=== PATIENT | male | born 1975 | race Caucasian/White ===

== ENCOUNTER → 2016-11-27 | Outpatient (CLI) | payer OTHER ==
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
== END | disposition home or self-care (01) ==
LOC: RADXRMAIN 17:31
PROVIDERS: ATTEND Family Medicine
DX: M19.072 Primary osteoarthritis, left ankle and foot (principal)

== ENCOUNTER → 2016-11-28 | Outpatient (CLI) | payer OTHER ==
[2016-11-28 10:25] LABS: CH 30.8; CHCM 33.4; HCT 48.5 % (39.0-53.0); HDW 2.67; HGB 16.1 gm/dL (13.0-17.5); MCH 30.8 pg (25.0-35.0); MCHC 33.2 g/dL (31.0-37.0); MCV 92.6 fL (80.0-100.0); RBC 5.24 m/uL (4.30-5.90); RDW 13.2 % (11.5-15.5); WBC 9.6 k/uL (3.8-10.6)
[2016-11-28 11:28] LABS: ALT 47 U/L (21-72); AST 28 U/L (17-59); Alkaline Phosphatase 73 U/L (38-126); Anion Gap 11 mmol/L; Bilirubin, Delta 0.3 mg/dL (0.0-0.2); Blood Urea Nitrogen 17 mg/dL (9-20); Calcium 9.5 mg/dL (8.4-10.2); Carbon Dioxide 27 mmol/L (22-30); Chloride 105 mmol/L (98-107); Cholesterol 239 mg/dL (<200); Glucose 104 mg/dL (74-99); HDL Cholesterol 41 mg/dL (40-60); Non-African American GFR(MDRD) >60 (>60 ml/min/1.73 sqM); Potassium 4.5 mmol/L (3.5-5.1); Sodium 143 mmol/L (137-145); Triglycerides 166 mg/dL (<150)
== END | disposition home or self-care (01) ==
LOC: LABWHC1 09:51
PROVIDERS: ATTEND Family Medicine
DX: S90.32XA Contusion of left foot, initial encounter (principal); R42 Dizziness and giddiness; H61.23 Impacted cerumen, bilateral; G89.29 Other chronic pain
CPT/HCPCS: 36415; 80053; 80061; 82248; 84439; 84443; 85027

== ENCOUNTER 2017-10-07 11:57 | Emergency (ER) | payer BC, OTHER ==
[2017-10-07] MEDS ORDERED: LISINOPRIL 2.5 MG TAB PO STA (12:31)
[2017-10-07] MEDS ORDERED: SODIUM CHLORIDE 0.9% 1,000 ML IV ONE (12:31)
[2017-10-07 12:53] LABS: Appearance,Urine Clear (Clear); Bilirubin,Urine Negative (Negative); Blood,Urine Negative (Negative); Color,Urine Light Yellow; Glucose,Urine (UA) Negative (Negative); Ketones,Urine Negative (Negative); Leukocyte Esterase,Urine Negative (Negative); Nitrite,Urine Negative (Negative); Protein,Urine Negative (Negative); Specific Gravity,Urine 1.001 (1.001-1.035); Urobilinogen,Urine <2.0 mg/dL (<2.0)
[2017-10-07 12:55] LABS: Basophils % (A) 0 %; Eosinophils % (A) 0 %; HCT 46.5 % (39.0-53.0); HGB 15.2 gm/dL (13.0-17.5); Lymphocytes # (A) 1.2 k/uL (1.0-4.8); Lymphocytes % (A) 17 %; MCH 29.9 pg (25.0-35.0); MCHC 32.8 g/dL (31.0-37.0); MCV 91.3 fL (80.0-100.0); Mean Platelet Volume 6.2; Monocytes # (A) 0.3 k/uL (0-1.0); Monocytes % (A) 4 %; Neutrophils # (A) 5.5 k/uL (1.3-7.7); Neutrophils % (A) 77 %; Platelet Count 341 k/uL (150-450); RBC 5.09 m/uL (4.30-5.90); RDW 12.2 % (11.5-15.5); WBC 7.1 k/uL (3.8-10.6)
[2017-10-07 13:06] LABS: ALT 33 U/L (21-72); AST 24 U/L (17-59); Alkaline Phosphatase 99 U/L (38-126); Anion Gap 14 mmol/L; Blood Urea Nitrogen 13 mg/dL (9-20); Calcium 10.2 mg/dL (8.4-10.2); Carbon Dioxide 29 mmol/L (22-30); Chloride 101 mmol/L (98-107); Glucose 112 mg/dL (74-99); Potassium 4.2 mmol/L (3.5-5.1); Sodium 144 mmol/L (137-145); Total Protein 8.7 g/dL (6.3-8.2)
--- NOTE | 2017-10-07 13:06 | ED ---
General Adult HPI - General Chief complaint: Weakness Stated complaint: EKG Changes Time Seen by Provider: 10/07/17 12:06 Source: patient Mode of arrival: ambulatory Limitations: no limitations - History of Present Illness Initial comments: This is a 42-year-old male with a history of hypertension who presents emergency department for an episode of lightheadedness, flushing, and diaphoresis this morning. He went to a clinic that did an EKG that was suspected to be abnormal in the was sent to the emergency department. The patient states that this episode happened this morning while he was standing. There is no position change. He states it lasted approximately an hour and he had symptoms that had resolved by the time he got to the clinic. EKG there was concerning because of some possible ST elevation in V2 and V3 and thus the patient was directed to the emergency department. Patient states that he has not had any chest pain today at all. No shortness of breath. He states he just felt lightheaded and got flushed at the time. He has complete resolution of his symptoms currently. Follows with Dr. Cope for his primary doctor. - Related Data Home Medications Medication Instructions Recorded Confirmed Lisinopril [Zestril] 2.5 mg PO DAILY 10/07/17 10/07/17 Allergies Allergy/AdvReac Type Severity Reaction Status Date / Time No Known Allergies Allergy Unverified 10/07/17 12:10 Review of Systems ROS Statement: Those systems with pertinent positive or pertinent negative responses have been documented in the HPI. ROS Other: All systems not noted in ROS Statement are negative. Past Medical History Past Medical History: Hypertension History of Any Multi-Drug Resistant Organisms: None Reported Past Surgical History: Appendectomy Past Psychological History: No Psychological Hx Reported Smoking Status: Never smoker Past Alcohol Use History: None Reported Past Drug Use History: None Reported General Exam - General Exam Comments Initial Comments: Constitutional: Awake alert Appears comfortable Head: Normocephalic atraumatic Eyes: no conjunctival injection No scleral icterus EOMI Neck: No JVD Supple Heart: Regular rate rhythm normal S1-S2 no murmurs Lungs: Clear to auscultation bilaterally No wheezing No rales Abdomen: Soft nondistended nontender Extremities: Non edematous DP pulses intact Radial pulses intact Neuro: A&Ox3 No focal neurologic deficits Psych: Appropriate mood and affect Limitations: no limitations Course Vital Signs 0210/07/17 10/07/17 12:09 12:39 14:08 Temperature 98.9 F Pulse Rate 69 74 86 Respiratory 16 18 14 Rate Blood Pressure 176/100 130/73 111/47 O2 Sat by Pulse 99 96 95 Oximetry EKG Findings - EKG Comments: EKG Findings:: EKG showing normal sinus rhythm with a rate of 64. There is no abnormal ST segment changes or T-wave inversion. QTC is 389. Other intervals normal. No ectopy. Medical Decision Making - Medical Decision Making Is a 42-year-old male who presents emergency department for an episode of lightheadedness that it completely resolved by the time he went and saw physician. EXT went to work for 4 hours before he sought any medical attention. EKG at the clinic was concerning for ST segment changes so they sent him to the emergency department. EKG read on here was completely normal. Patient had blood work drawn that was unremarkable. Troponin negative. The patient was ambulatory up and down the hallway without any symptoms. He has had had any symptoms since this morning. At this time I feel the patient is okay to go home. He can follow-up with Dr. Ivey as an outpatient. Told him that if he had recurrent symptoms he needed to return emergency department promptly for reevaluation. All questions were answered. - Lab Data Result diagrams: 10/07/17 12:35 10/07/17 12:35 Lab Results 10/07/17 10/07/17 10/07/17 Range/Units 12:35 12:35 12:35 WBC 7.1 (3.8-10.6) k/uL RBC 5.09 (4.30-5.90) m/uL Hgb 15.2 (13.0-17.5) gm/dL Hct 46.5 (39.0-53.0) % MCV 91.3 (80.0-100.0) fL MCH 29.9 (25.0-35.0) pg MCHC 32.8 (31.0-37.0) g/dL RDW 12.2 (11.5-15.5) % Plt Count 341 (150-450) k/uL Neutrophils % 77 % Lymphocytes % 17 % Monocytes % 4 % Eosinophils % 0 % Basophils % 0 % Neutrophils # 5.5 (1.3-7.7) k/uL Lymphocytes # 1.2 (1.0-4.8) k/uL Monocytes # 0.3 (0-1.0) k/uL Eosinophils # 0.0 (0-0.7) k/uL Basophils # 0.0 (0-0.2) k/uL PT (9.0-12.0) sec INR (<1.2) APTT (22.0-30.0) sec Sodium 144 (137-145) mmol/L Potassium 4.2 (3.5-5.1) mmol/L Chloride 101 (98-107) mmol/L Carbon Dioxide 29 (22-30) mmol/L Anion Gap 14 mmol/L BUN 13 (9-20) mg/dL Creatinine 0.80 (0.66-1.25) mg/dL Est GFR (MDRD) Af Amer >60 (>60 ml/min/1.73 sqM) Est GFR (MDRD) Non-Af >60 (>60 ml/min/1.73 sqM) Glucose 112 H (74-99) mg/dL Calcium 10.2 (8.4-10.2) mg/dL Total Bilirubin 1.0 (0.2-1.3) mg/dL AST 24 (17-59) U/L ALT 33 (21-72) U/L Alkaline Phosphatase 99 (38-126) U/L CK-MB (CK-2) 0.7 (0.0-2.4) ng/mL Troponin I <0.012 (0.000-0.034) ng/mL Total Protein 8.7 H (6.3-8.2) g/dL Albumin 5.0 (3.5-5.0) g/dL Urine Color Urine Appearance (Clear) Urine pH (5.0-8.0) Ur Specific [place] (1.001-1.035) Urine Protein (Negative) Urine Glucose (UA) (Negative) Urine Ketones (Negative) Urine Blood (Negative) Urine Nitrite (Negative) Urine Bilirubin (Negative) Urine Urobilinogen (<2.0) mg/dL Ur Leukocyte Esterase (Negative) 10/07/17 10/07/17 Range/Units 12:35 12:35 WBC (3.8-10.6) k/uL RBC (4.30-5.90) m/uL Hgb (13.0-17.5) gm/dL Hct (39.0-53.0) % MCV (80.0-100.0) fL MCH (25.0-35.0) pg MCHC (31.0-37.0) g/dL RDW (11.5-15.5) % Plt Count (150-450) k/uL Neutrophils % % Lymphocytes % % Monocytes % % Eosinophils % % Basophils % % Neutrophils # (1.3-7.7) k/uL Lymphocytes # (1.0-4.8) k/uL Monocytes # (0-1.0) k/uL Eosinophils # (0-0.7) k/uL Basophils # (0-0.2) k/uL PT 10.0 (9.0-12.0) sec INR 1.0 (<1.2) APTT 24.2 (22.0-30.0) sec Sodium (137-145) mmol/L Potassium (3.5-5.1) mmol/L Chloride (98-107) mmol/L Carbon Dioxide (22-30) mmol/L Anion Gap mmol/L BUN (9-20) mg/dL Creatinine (0.66-1.25) mg/dL Est GFR (MDRD) Af Amer (>60 ml/min/1.73 sqM) Est GFR (MDRD) Non-Af (>60 ml/min/1.73 sqM) Glucose (74-99) mg/dL Calcium (8.4-10.2) mg/dL Total Bilirubin (0.2-1.3) mg/dL AST (17-59) U/L ALT (21-72) U/L Alkaline Phosphatase (38-126) U/L CK-MB (CK-2) (0.0-2.4) ng/mL Troponin I (0.000-0.034) ng/mL Total Protein (6.3-8.2) g/dL Albumin (3.5-5.0) g/dL Urine Color Light Yellow Urine Appearance Clear (Clear) Urine pH 7.0 (5.0-8.0) Ur Specific [place] 1.001 (1.001-1.035) Urine Protein Negative (Negative) Urine Glucose (UA) Negative (Negative) Urine Ketones Negative (Negative) Urine Blood Negative (Negative) Urine Nitrite Negative (Negative) Urine Bilirubin Negative (Negative) Urine Urobilinogen <2.0 (<2.0) mg/dL Ur Leukocyte Esterase Negative (Negative) Disposition Clinical Impression: Lightheadedness Disposition: HOME SELF-CARE Condition: Stable Instructions: Lightheadedness (ED) Additional Instructions: Call Dr. Ivey to set up a stress test and possible echocardiogram. Return if you have recurring symptoms or chest pain, shortness of breath, or pass out. Referrals: Angelo Cope Jr, [Primary Care Provider] - 1-2 days
[2017-10-07 13:12] LABS: Partial Thromboplastin Time 24.2 sec (22.0-30.0)
[2017-10-07 13:34] LABS: Creatine Kinase MB 0.7 ng/mL (0.0-2.4); Troponin I <0.012 ng/mL (0.000-0.034)
[2017-10-07 14:45] VITALS: BP 111/52; PULSE 78; RESP 16; TEMP 97.8
== END 2017-10-07 14:44 | disposition home or self-care (01) ==
LOC: EC 11:57
DX: R42 Dizziness and giddiness (principal); I10 Essential (primary) hypertension; Z79.899 Other long term (current) drug therapy; R61 Generalized hyperhidrosis
CPT/HCPCS: 36415; 80053; 81003; 82553; 84484; 85025; 85610; 85730; 93005; 96360; 99285

== ENCOUNTER → 2017-10-25 | Outpatient (CLI) | payer BC ==
--- NOTE | 2017-10-25 17:47 | ECHOF ---
Referral Reason:I10 hypertension, R42 Dizziness MEASUREMENTS -------- HEIGHT: 162.6 cm WEIGHT: 124.7 kg BP: RVIDd: 3.0 cm (< 3.3) IVSd: 1.1 cm (0.6 - 1.1) LVIDd: 4.3 cm (3.9 - 5.3) LVPWd: 1.4 cm (0.6 - 1.1) IVSs: 1.2 cm LVIDs: 4.0 cm LVPWs: 1.1 cm LA Diam: 3.7 cm (2.7 - 3.8) LAESV Index (A-L): 34.41 ml/m Ao Diam: 3.6 cm (2.0 - 3.7) AV Cusp: 2.5 cm (1.5 - 2.6) LA Diam: 4.3 cm (2.7 - 3.8) MV EXCURSION: 19.783 mm (> 18.000) MV EF SLOPE: 127 mm/s (70 - 150) EPSS: 0.2 cm MV E Dennis: 0.48 m/s MV DecT: 198 ms MV A Dennis: 0.55 m/s MV E/A Ratio: 0.87 RAP: 5.00 mmHg RVSP: 17.49 mmHg FINDINGS -------- Sinus rhythm. This was a technically good study. The left ventricular size is normal. There is borderline concentric left ventricular hypertrophy. Overall left ventricular systolic function is normal with, an EF between 55 - 60 %. The right ventricle is normal in size. Normal LA size by volume 22+/-6 ml/m2. The right atrial size is normal. The aortic valve is trileaflet, and appears structurally normal. No aortic stenosis or regurgitation. The mitral valve is normal. Mild mitral regurgitation is present. Mild tricuspid regurgitation present. There is no evidence of pulmonary hypertension. The right v entricular systolic pressure, as measured by Doppler, is 17.49mmHg. There is no pulmonic regurgitation present. The aortic root size is normal. There is no pericardial effusion. CONCLUSIONS -------- 1. Sinus rhythm. 2. The left ventricular size is normal. 3. There is borderline concentric left ventricular hypertrophy. 4. Overall left ventricular systolic function is normal with, an EF between 55 - 60 %. 5. Normal LA size by volume 22+/-6 ml/m2. 6. The aortic valve is trileaflet, and appears structurally normal. No aortic stenosis or regurgitati on. 7. Mild mitral regurgitation is present. 8. Mild tricuspid regurgitation present. 9. There is no evidence of pulmonary hypertension. 10. There is no pulmonic regurgitation present. 11. The aortic root size is normal. 12. There is no pericardial effusion. [employer]: Korina Carter RDCS
--- NOTE | 2017-10-25 18:32 | P.STRESS ---
- Stress Test Note Stress Test Results/Findings: Exam Performed: stress test Exam Date: 10/25/17 Reason for Exam: Chest pain, physical Height: 5 ft 5 in Weight: 122.47 kg Protocol: Scottie Stage: 3 Duration of Exercise: 10:00 Resting Heart Rate: 79 Resting Blood Pressure: 119/98 Maximum Achieved Heart Rate: 167 Maximum Achieved Blood Pressure: 182/90 85% PMHR: 150 100% PMHR: 176 METS: 11.7 Technologist Comment: Stress Test Results/Findings: This 42-year-old gentleman is being evaluated for chest pains. Patient has history of hypertension. Baseline EKG showed sinus rhythm with normal [place] interval and QRS duration. Blood pressure at rest is 119/98 with pulse rate of 79. Patient walked on the Scottie protocol for 10 minutes achieving a maximum rate of 167 with a blood pressure of 182/90. EKGs taken during and after the exercise did not reveal any changes to suggest ischemia. Final impression #1. Negative stress test #2. Good excise capacity #3. Patient did not express any chest pain. #4. No arrhythmias are detected.
--- NOTE | 2017-10-29 11:23 | EST ---
- Stress Test Note Stress Test Results/Findings: Exam Performed: stress test Exam Date: 10/25/17 Reason for Exam: Chest pain, physical Height: 5 ft 5 in Weight: 122.47 kg Protocol: Scottie Stage: 3 Duration of Exercise: 10:00 Resting Heart Rate: 79 Resting Blood Pressure: 119/98 Maximum Achieved Heart Rate: 167 Maximum Achieved Blood Pressure: 182/90 85% PMHR: 150 100% PMHR: 176 METS: 11.7 Technologist Comment: Stress Test Results/Findings: This 42-year-old gentleman is being evaluated for chest pains. Patient has history of hypertension. Baseline EKG showed sinus rhythm with normal [place] interval and QRS duration. Blood pressure at rest is 119/98 with pulse rate of 79. Patient walked on the Scottie protocol for 10 minutes achieving a maximum rate of 167 with a blood pressure of 182/90. EKGs taken during and after the exercise did not reveal any changes to suggest ischemia. Final impression #1. Negative stress test #2. Good excise capacity #3. Patient did not express any chest pain. #4. No arrhythmias are detected. MTDD
== END | disposition home or self-care (01) ==
LOC: RADNMMAIN 10:12
PROVIDERS: ATTEND Family Medicine
DX: I08.1 Rheumatic disorders of both mitral and tricuspid valves (principal); I10 Essential (primary) hypertension
CPT/HCPCS: 93017; 93306

== ENCOUNTER → 2020-04-22 | Outpatient (CLI) | payer BC ==
--- NOTE | 2020-04-22 12:36 | XR ---
EXAMINATION TYPE: XR chest 2V DATE OF EXAM: 04/22/2020 COMPARISON: None HISTORY: 44-year-old male chronic chest pain, R05, R07.89 TECHNIQUE: Frontal and lateral views FINDINGS: Heart normal size. Aorta and pulmonary vasculature within normal limits. Mild interstitial prominence . Some mild strandy basilar atelectasis. No consolidation or pleural effusion. IMPRESSION: Mild interstitial prominence may be chronic. Correlate for possible bronchitis or asthma. Otherwise, no acute process seen.
== END | disposition home or self-care (01) ==
LOC: RADXRMAIN 10:03
PROVIDERS: ATTEND Nurse Practitioner Women's Health
DX: R91.8 Other nonspecific abnormal finding of lung field (principal); R07.89 Other chest pain; R05 Cough
CPT/HCPCS: 71046

== ENCOUNTER 2020-06-17 12:13 | Day surgery (SDC) | payer BC ==
[2020-06-16 10:35] VITALS: BMI 38.7
[~2020-06-17 12:13] MED LIST: Pre Op ABX Message 1 EACH MISC MISCELLANE ONE
[2020-06-17 12:40] VITALS: TEMP 97
[2020-06-17] MEDS ORDERED: LACTATED RINGERS 1,000 ML IV ONE (12:49)
[2020-06-17] MEDS ORDERED: LIDOCAINE 1% (10MG/ML) FOR IV START INTRADERMA ONE (12:50)
[2020-06-17] MEDS ORDERED: SODIUM BICARB 8.4% 10 ML VIAL (1 MEQ/ML) ONE (14:08)
[2020-06-17 15:42] VITALS: BP 116/72; PULSE 65; RESP 17
--- NOTE | 2020-06-28 14:34 | P.OP ---
Date of Procedure: 06/17/20 Preoperative Diagnosis: Right middle finger mass Postoperative Diagnosis: Right middle finger mass (ganglion cyst) Procedure(s) Performed: Excision of right middle finger mass/ganglion cyst Anesthesia: local Surgeon: Rafael Gutiérrez Estimated Blood Loss (ml): 2 Pathology: other (cyst) Condition: stable Disposition: same day Indications for Procedure: The patient is 44-year-old male who presented to the office with a right middle finger mass. Top differential diagnoses included ganglion/mucous cyst versus inclusion cyst. Treatment options were presented, along with associated surgical risks and benefits, including the potential for cyst recurrence and extensor lag. The patient expressed understanding, willingness to accept these risks and elected operative treatment. In preop, additional questions were addressed and the patient wished to proceed with surgery. Consent forms were signed. The operative site was confirmed and marked in preop. Description of Procedure: After informed consent was obtained, lidocaine with epinephrine was injected around the planned incision/surgical site in preop, using aseptic technique. The patient was brought to the OR and positioned supine with the operative limb on a hand table. The right upper extremity was then prepped and draped in standard, sterile fashion. A time-out was performed, confirming patient identifiers, the operative side, the site and the procedure to be performed: all team members expressed agreement. A tourniquet was not initially utilized. Loupe magnification was utilized throughout the case for optimum visualization. An S-shaped incision was marked over the mass at the dorsal aspect of the DIP joint. The skin was sharply incised and clear, mucinous fluid was immediately encountered, consistent with a ganglion cyst. Full-thickness skin flaps were elevated. There was some breakthrough bleeding, despite the use of preoperative local anesthetic with epinephrine; a strip of the Esmarch was cut and clamped at the base of the finger as a digital tourniquet. The partially-decompressed cyst was visualized and its borders were defined: It extended proximally along the dorsum of the middle phalanx and distally to the ulnar aspect of the distal phalanx base. The cyst was carefully dissected free from the surrounding subcutaneous tissues. It was traced distally to its attachment at the ulnar edge of the eponychium, near the germinal matrix. Once circumferentially dissected free, the cyst capsule was sharply excised, taking care to avoid injury to the nailbed. The cyst was sent for pathologic analysis. There were no large osteophytes ulnarly, but a small spur was identified on the radial corner of the DIP joint, at the base of the distal phalanx. A limited arthrotomy was performed and the small exostosis was resected with a rongeur. The wound was visually and palpably explored: No residual cystic tissue or soft tissue masses were appreciated. The wound was copiously irrigated with normal saline. The digital tourniquet was released after 17 minutes: good hemostasis was obtained with manual pressure. The incision was closed with interrupted 5-0 nylon sutures. A soft, sterile dressing was applied. All sponge, needle and instrument counts were correct at the end of the case. The patient tolerated the procedure well and was taken to recovery in stable condition.
== END 2020-06-17 16:16 | disposition home or self-care (01) ==
LOC: OR 12:13
PROVIDERS: ATTEND Orthopaedic Surgery
DX: M67.441 Ganglion, right hand (principal); I10 Essential (primary) hypertension; Z98.890 Other specified postprocedural states; Z83.3 Family history of diabetes mellitus; Z82.49 Family history of ischemic heart disease and other diseases of the circulatory system; Z83.2 Family history of diseases of the blood and blood-forming organs and certain disorders involving the immune mechanism
CPT/HCPCS: 88304

== ENCOUNTER 2021-08-20 05:56 | Emergency (ER) | payer BC ==
[2021-08-20 06:14] VITALS: BP 139/78; PULSE 94; RESP 20; TEMP 97.9
[2021-08-20] MEDS ORDERED: LIDOCAINE 1% INJ 10MG/ML (20 ML MDV) SQ ONE (06:26)
--- NOTE | 2021-08-20 07:13 | ED ---
Skin/Abscess/FB HPI - General Chief complaint: Skin/Abscess/Foreign Body Stated complaint: Abcess on back Time Seen by Provider: 08/20/21 06:26 Source: patient, RN notes reviewed Mode of arrival: ambulatory - History of Present Illness Initial comments: Patient is a 45-year-old male that presents to the emergency department complaining of a large abscess to his upper left back. Patient notes he did have a follow-up with his teacher instrumental but had to miss it due to Covid. Patient notes that he's been keeping it clean and dressing at home. He notes that it started becoming more painful over the last couple days and started oozing on its own this morning. Patient decided come to the emergency room to get evaluated and taken care of. Patient denied any other issues or complaints. He was otherwise well-appearing. He denied any chest pain shortness of breath headache nausea vomiting diarrhea constipation fever fatigue chills. - Related Data Home Medications Medication Instructions Recorded Confirmed lisinopriL [Zestril] 2.5 mg PO DAILY 10/07/17 06/17/20 Glucosam/Mario Alberto-Msm1/C/Qasim/Bosw 1 each PO DAILY 06/16/20 06/16/20 [Glucosamine-Chondroitin Tablet] Ibuprofen [Advil] 400 mg PO DIRECTED PRN 06/16/20 06/16/20 Multivit-Min/Folic/Vit K/Lycop 1 each PO DAILY 06/16/20 06/16/20 [Men's Multivitamin Tablet] Previous Rx's Medication Instructions Recorded Doxycycline Monohydrate [Monodox] 100 mg PO Q12HR #20 cap 08/20/21 Allergies Allergy/AdvReac Type Severity Reaction Status Date / Time No Known Allergies Allergy Verified 08/20/21 06:09 Review of Systems ROS Statement: Those systems with pertinent positive or pertinent negative responses have been documented in the HPI. ROS Other: All systems not noted in ROS Statement are negative. Past Medical History Past Medical History: Hypertension Additional Past Medical History / Comment(s): mass right middle finger History of Any Multi-Drug Resistant Organisms: None Reported Past Surgical History: Appendectomy Past Anesthesia/Blood Transfusion Reactions: Motion Sickness, Postoperative Nausea & Vomiting (PONV) Additional Past Anesthesia/Blood Transfusion Reaction / Comment(s): states vomited after dilaudid given fast. states severe motion sickness Past Psychological History: No Psychological Hx Reported Smoking Status: Never smoker Past Alcohol Use History: Rare Past Drug Use History: None Reported - Past Family History Mother Family Medical History: No Reported History General Exam General appearance: alert, in no apparent distress, obese Head exam: Present: atraumatic, normocephalic, normal inspection Eye exam: Present: normal appearance, PERRL, EOMI. Absent: scleral icterus, conjunctival injection, periorbital swelling ENT exam: Present: normal exam, mucous membranes moist Neck exam: Present: normal inspection Respiratory exam: Present: normal lung sounds bilaterally. Absent: respiratory distress, wheezes, rales, rhonchi, stridor Cardiovascular Exam: Present: regular rate, normal rhythm, normal heart sounds. Absent: systolic murmur, diastolic murmur, rubs, gallop, clicks Extremities exam: Present: normal inspection, full ROM, normal capillary refill. Absent: tenderness, pedal edema, joint swelling, calf tenderness Neurological exam: Present: alert, oriented X3 Psychiatric exam: Present: normal affect, normal mood Skin exam: Present: warm, dry, intact, normal color. Absent: rash Expanded Type of lesion: Present: abscess (Large 10 cm x 8 cm abscess to upper left back erythematous, tender.) Course Vital Signs 08/20/21 06:09 Temperature 97.9 F Pulse Rate 94 Respiratory 20 Rate Blood Pressure 139/78 O2 Sat by Pulse 96 Oximetry Procedures - Incision & Drainage Consent Obtained: verbal consent Site: back (Upper left) Size (cm): 10 Anesthetic Used: lidocaine 1% Amount (mLs): 12 I&D Cleaning Method: Betadine Sterile Field Used?: Yes Scalpel Used: #11 Needle Aspiration Performed?: No Irrigation Performed?: Yes I&D Drainage Obtained: Pus, Blood Packing: Iodoform Culture Obtained?: Yes Patient Tolerated Procedure: well, no complications Medical Decision Making - Medical Decision Making 45-year-old male with a large abscess to upper left back. Lidocaine and aerobic wound culture ordered. Patient tolerated incision and drainage well. Wound was cleaned prior to lidocaine and then again prior to incision. Hemostats were used to explore abscess to break up loculations. Iodoform packing placed. Antibiotics sent to pharmacy. Patient informed to follow up with primary care and/or dermatology in the next several days. Case discussed with Dr. Hurst. Disposition Clinical Impression: Abscess Disposition: HOME SELF-CARE Condition: Stable Instructions (If sedation given, give patient instructions): Abscess (ED), Moderate Sedation in Children (ED) Additional Instructions: Please return to the Emergency Department if symptoms worsen or any other concerns. Follow-up with primary care in 1-2 days. Follow-up with teacher instrumental as possible. Keep area clean and dry. Keep packing in for the next 2-3 days. Take antibiotics as prescribed until complete. Anabiotic sent to [facility] pharmacy. Is patient prescribed a controlled substance at d/c from ED?: No Referrals: Angelo Cope Jr, [Primary Care Provider] - 1-2 days Time of Disposition: 07:12
== END 2021-08-20 07:22 | disposition home or self-care (01) ==
LOC: EC 05:56
DX: L02.212 Cutaneous abscess of back [any part, except buttock and flank] (principal); I10 Essential (primary) hypertension; Z79.1 Long term (current) use of non-steroidal anti-inflammatories (NSAID); Z79.899 Other long term (current) drug therapy
CPT/HCPCS: 87070; 87205; 10060; 99283; J2001

== ENCOUNTER 2024-03-12 08:32 | Day surgery (SDC) | payer BC ==
[2024-03-12] MEDS: IV FLUID CONTINUATION 1,000 ML IV ONE (08:55)
[2024-03-12 09:05] VITALS: TEMP 96.7
[2024-03-12] MEDS: LACTATED RINGERS 1,000 ML IV SCH (09:18)
[2024-03-12] MEDS ORDERED: PROPOFOL 10 MG/ML 20 ML VIAL IV ONE (09:33)
[2024-03-12] MEDS ORDERED: LIDOCAINE 1% INJ 10MG/ML (20 ML MDV) ONE (09:33)
--- NOTE | 2024-03-12 09:39 | P.GSHP ---
History of Present Illness H&P Date: 03/12/24 Chief Complaint: Screening colonoscopy This is a 48-year-old male presents today for screening colonoscopy. Patient denies any significant GI complaints. Past Medical History Past Medical History: Hypertension Additional Past Medical History / Comment(s): no longer take lisinopril for htn since diet changes History of Any Multi-Drug Resistant Organisms: None Reported Past Surgical History: Appendectomy Additional Past Surgical History / Comment(s): Rt. middle finger mass, cyst removed from back Past Anesthesia/Blood Transfusion Reactions: Motion Sickness, Postoperative Nausea & Vomiting (PONV) Additional Past Anesthesia/Blood Transfusion Reaction / Comment(s): states vomited after dilaudid given fast. states severe motion sickness Smoking Status: Never smoker - Past Family History Mother Family Medical History: No Reported History Medications and Allergies Home Medications Medication Instructions Recorded Confirmed Type Glucosam/Mario Alberto-Msm1/C/Qasim/Bosw 1 each PO DAILY 06/16/20 03/12/24 History [Glucosamine-Chondroitin Tablet] Ibuprofen [Advil] 400 mg PO DIRECTED PRN 06/16/20 03/12/24 History Multivit-Min/Folic/Vit K/Lycop 1 each PO DAILY 06/16/20 03/12/24 History [Men's Multivitamin Tablet] Allergies Allergy/AdvReac Type Severity Reaction Status Date / Time No Known Allergies Allergy Verified 03/12/24 09:18 Surgical - Exam Vital Signs Temp Pulse Resp BP Pulse Ox 96.7 F L 67 18 126/74 95 03/12/24 08:56 03/12/24 08:56 03/12/24 08:56 03/12/24 08:56 03/12/24 08:56 - General well developed, well nourished, no distress - Eyes PERRL - ENT normal pinna - Neck no masses - Respiratory normal expansion - Cardiovascular Rhythm: regular - Abdomen Abdomen: soft, non tender Assessment and Plan Assessment: Will perform screening colonoscopy
--- NOTE | 2024-03-12 09:49 | P.OP ---
Date of Procedure: 03/12/24 Preoperative Diagnosis: Screening colonoscopy Postoperative Diagnosis: Normal colon Procedure(s) Performed: Colonoscopy Anesthesia: MAC Surgeon: Loco Mendoza Pathology: none sent Condition: stable Disposition: PACU Description of Procedure: PROCEDURE: The patient was placed on the endoscopy table in the lateral position. Digital rectal examination was performed which revealed no abnormalities. The prostate was symmetrical without nodules. Flexible colonoscope was then placed in the patient's anus and passed throughout the entire colon. The ileocecal valve was visualized. The cecum, ascending, transverse, descending and sigmoid colon were normal. The rectum was normal as well. There were no masses, polyps or diverticula noted in the entire colon. SUMMARY OF FINDINGS: Normal colonoscopy.
[2024-03-12 10:13] VITALS: BP 123/64; PULSE 63; RESP 18
== END 2024-03-12 10:26 | disposition home or self-care (01) ==
LOC: ORWHC2ENDO 08:32
PROVIDERS: ATTEND Surgery
DX: Z12.11 Encounter for screening for malignant neoplasm of colon (principal); I10 Essential (primary) hypertension; Z79.899 Other long term (current) drug therapy
CPT/HCPCS: 45378; J2001; J2704